=== PATIENT | female | born 1990 | race Caucasian/White ===

== ENCOUNTER → 2023-08-20 17:28 | Outpatient (REF) | payer BC, SELFPAY | LOC: PNTC 17:28 | PROVIDERS: ATTENDING PHYSICIAN Obstetrics & Gynecology | DX: O09.529 Supervision of elderly multigravida, unspecified trimester (principal) | CPT/HCPCS: 76816 ==

== ENCOUNTER 2023-10-10 13:13 | Observation (INO) | payer BC, SELFPAY ==
[2023-10-10 13:29] VITALS: BP 125/79; BMI 30.2
[2023-10-10 14:22] LABS: Hemoglobin 9.9 g/dL (12.0-16.0); Mean Corp Hgb Conc. 36.7 g/dL (33.0-37.0); Mean Corpuscular Hgb 32.6 pg (27.0-31.0); Mean Corpuscular Volume 88.8 fL (81.0-99.0); Mean Platelet Volume 10.1 fL (7.4-10.4); Platelet Count 306 10^3/uL (130-400); Red Blood Cell Count 3.04 10^6/uL (4.20-5.40)
[2023-10-10 14:33] LABS: ALT (SGPT) 15 U/L (0-35); AST (SGOT) 27 U/L (14-36); Albumin 3.7 g/dl (3.5-5.0); Alkaline Phosphatase 120 U/L (38-126); Blood Urea Nitrogen 10 mg/dl (7-17); Calcium 9.6 mg/dl (8.4-10.2); Carbon Dioxide 21 mmol/L (22-30); Chloride 105 mmol/L (98-107); Estimated Creatinine Clearance > 125 ml/min; Glucose 78 mg/dl (70-99); Potassium 4.3 mmol/L (3.5-5.1); Sodium 133 mmol/L (135-145); Total Bilirubin 0.4 mg/dl (0.2-1.3); Total Protein 6.4 g/dl (6.3-8.2); eGFR > 60.00
[2023-10-10 15:16] LABS: Urine Albumin Negative (Neg - Trace); Urine Bilirubin Negative (Negative); Urine Character Clear (Clear); Urine Color Yellow; Urine Glucose Negative (Negative); Urine Ketone Negative (Negative); Urine Leukocyte Negative (Negative); Urine Nitrite Negative (Negative); Urine Occult Blood Negative (Negative); Urine Specific Gravity 1.005 (<1.030); Urine Urobilinogen Negative (Neg - 1+)
[2023-10-10 15:33] LABS: Protein/creatinine Ratio 0.4; Urine Protein 13 mg/dl
== END 2023-10-10 16:59 | disposition home or self-care (01) ==
LOC: LDRP 13:13
PROVIDERS: Obstetrics & Gynecology; ADMITTING PHYSICIAN Obstetrics & Gynecology
DX: M54.50 Low back pain, unspecified (principal); R10.9 Unspecified abdominal pain; R51.9 Headache, unspecified; R20.2 Paresthesia of skin; O48.0 Post-term pregnancy; Z3A.40 40 weeks gestation of pregnancy; O99.343 Other mental disorders complicating pregnancy, third trimester; F41.9 Anxiety disorder, unspecified; O09.523 Supervision of elderly multigravida, third trimester; O99.013 Anemia complicating pregnancy, third trimester; D64.9 Anemia, unspecified; Z88.1 Allergy status to other antibiotic agents; Z88.2 Allergy status to sulfonamides
CPT/HCPCS: 59025; 80053; 81003; 82570; 84156; 84550; 85027; 86850; 86900; 86901; G0378

== ENCOUNTER → 2023-10-13 10:42 | Outpatient (REF) | payer BC, SELFPAY | LOC: PNTC 10:42 | PROVIDERS: ATTENDING PHYSICIAN Obstetrics & Gynecology | DX: O48.0 Post-term pregnancy (principal) | CPT/HCPCS: 59025; 76815 ==

== ENCOUNTER 2023-10-15 02:25 | Inpatient (IN) | payer BC, SELFPAY ==
[2023-10-15 02:47] VITALS: BP 124/69; BMI 30.6
[2023-10-15 03:57] LABS: % Basophils 0.3 % (0-2); % Eosinophils 0.7 % (0-6); % Immature Granulocytes 1.1 % (0-0.5); % Lymphocytes 15.1 % (20.5-51.1); % Monocytes 7.4 % (1.7-9.3); % Neutrophils 75.4 % (42.2-75.2); Absolute Eosinophils 0.1 10^3/uL (0-0.7); Absolute Immature Granulocytes 0.2 10^3/uL (0-0.05); Absolute Lymphocytes 2.3 10^3/uL (1.2-3.4); Absolute Monocytes 1.1 10^3/uL (0.1-0.6); Absolute Neutrophils 11.4 10^3/uL (1.4-6.5); Hematocrit 26.7 % (37.0-47.0); Hemoglobin 9.8 g/dL (12.0-16.0); Mean Corp Hgb Conc. 36.7 g/dL (33.0-37.0); Mean Corpuscular Hgb 32.7 pg (27.0-31.0); Nucleated Red Blood Cells % 0 %; Platelet Count 321 10^3/uL (130-400); Red Cell Dist. Width 12.8 % (11.5-14.5); White Blood Cell Count 15.1 10^3/uL (4.8-10.8)
[2023-10-15] MEDS: LR 1000 IV ×2 (04:35→10:56)
[2023-10-15] MEDS: PITOCIN 30 UNITS/NSS 500 ML IV ×2 (09:58→13:26)
[2023-10-15] MEDS: FENTANYL/BUPIVACAINE 100 EPIDURAL (11:15)
[2023-10-15] MEDS: SUBLIMAZE 100 MCG EPIDURAL (11:15)
[2023-10-15] MEDS: METHERGINE INJECTION 0.2 MG IM (15:04)
[2023-10-15] MEDS: TRANEXAMIC ACID 100 IV (15:10)
[2023-10-15] MEDS: MOTRIN 600 MG PO ×2 (15:39→23:47)
[2023-10-15] MEDS: TYLENOL 650 MG PO ×2 (15:40→23:47)
[2023-10-16 05:48] LABS: Hematocrit 23.3 % (37.0-47.0); Hemoglobin 8.4 g/dL (12.0-16.0)
[2023-10-16] MEDS: TYLENOL 650 MG PO ×2 (07:38→15:56)
[2023-10-16] MEDS: MOTRIN 600 MG PO ×2 (07:39→15:55)
[2023-10-16] MEDS: PRENATAL PLUS 1 TABLET PO (07:39)
[2023-10-16] MEDS: SENOKOT-S 1 TABLET PO (07:39)
[2023-10-16] MEDS: FEOSOL 325 MG PO (15:55)
[2023-10-16 15:57] LABS: Syphilis/T. pallidum Ab Reflex Negative (Negative)
[2023-10-17] MEDS: PRENATAL PLUS 1 TABLET PO (08:06)
[2023-10-17] MEDS: FEOSOL 325 MG PO (08:06)
[2023-10-17] MEDS: TYLENOL 650 MG PO (08:09)
[2023-10-17] MEDS: MOTRIN 600 MG PO (08:10)
== END 2023-10-17 12:42 | disposition home or self-care (01) | DRG 807 ==
LOC: LDRP 02:25
PROVIDERS: Obstetrics & Gynecology; ADMITTING PHYSICIAN Obstetrics & Gynecology
PROC: 10E0XZZ Delivery of Products of Conception, External Approach (ICD-10-PCS; 2023-10-15)
PROC: 0UQMXZZ Repair Vulva, External Approach (ICD-10-PCS; 2023-10-15)
PROC: 0HQ9XZZ Repair Perineum Skin, External Approach (ICD-10-PCS; 2023-10-15)
DX: O48.0 Post-term pregnancy (principal); Z37.0 Single live birth; O42.02 Full-term premature rupture of membranes, onset of labor within 24 hours of rupture; Z3A.41 41 weeks gestation of pregnancy; O70.0 First degree perineal laceration during delivery; Z88.1 Allergy status to other antibiotic agents; Z88.2 Allergy status to sulfonamides; O99.344 Other mental disorders complicating childbirth; F41.9 Anxiety disorder, unspecified; O90.81 Anemia of the puerperium; D64.9 Anemia, unspecified
CPT/HCPCS: 85014; 85018; 85025; 86780; 86850; 86900; 86901

== ENCOUNTER 2023-10-20 17:39 | Observation (INO) | payer BC, SELFPAY ==
[2023-10-20 17:55] VITALS: BMI 30.1
[2023-10-20 18:23] VITALS: BP 129/83
[2023-10-20 18:29] LABS: % Basophils 0.4 % (0-2); % Immature Granulocytes 0.9 % (0-0.5); % Lymphocytes 17.3 % (20.5-51.1); % Monocytes 6.4 % (1.7-9.3); Absolute Basophils 0.1 10^3/uL (0-0.2); Absolute Eosinophils 0.1 10^3/uL (0-0.7); Absolute Immature Granulocytes 0.1 10^3/uL (0-0.05); Absolute Lymphocytes 2.2 10^3/uL (1.2-3.4); Absolute Monocytes 0.8 10^3/uL (0.1-0.6); Absolute Neutrophils 9.6 10^3/uL (1.4-6.5); Hematocrit 24.7 % (37.0-47.0); Hemoglobin 8.9 g/dL (12.0-16.0); Mean Corpuscular Hgb 32.5 pg (27.0-31.0); Mean Corpuscular Volume 90.1 fL (81.0-99.0); Mean Platelet Volume 9.2 fL (7.4-10.4); Nucleated Red Blood Cells % 0 %; Platelet Count 388 10^3/uL (130-400); Red Blood Cell Count 2.74 10^6/uL (4.20-5.40); Red Cell Dist. Width 12.7 % (11.5-14.5); White Blood Cell Count 12.9 10^3/uL (4.8-10.8)
[2023-10-20 18:44] LABS: ALT (SGPT) 31 U/L (0-35); AST (SGOT) 35 U/L (14-36); Albumin 3.7 g/dl (3.5-5.0); Alkaline Phosphatase 90 U/L (38-126); Blood Urea Nitrogen 20 mg/dl (7-17); Calcium 9.4 mg/dl (8.4-10.2); Carbon Dioxide 25 mmol/L (22-30); Chloride 108 mmol/L (98-107); Estimated Creatinine Clearance 100 ml/min; Glucose 91 mg/dl (70-99); Potassium 4.2 mmol/L (3.5-5.1); Sodium 138 mmol/L (135-145); Total Bilirubin 0.3 mg/dl (0.2-1.3); Total Protein 6.2 g/dl (6.3-8.2); eGFR > 60.00
[2023-10-20] MEDS: MOTRIN 600 MG PO (19:09)
[2023-10-20] MEDS: TYLENOL 1000 MG PO (19:09)
== END 2023-10-20 20:45 | disposition home or self-care (01) ==
LOC: LDRP 17:39
PROVIDERS: ADMITTING PHYSICIAN Obstetrics & Gynecology
DX: R51.9 Headache, unspecified (principal); M54.9 Dorsalgia, unspecified
CPT/HCPCS: 80053; 85025; G0378

== ENCOUNTER → 2023-11-12 07:30 | Outpatient (REF) | payer BC, SELFPAY | LOC: MRI 07:30 | PROVIDERS: ATTENDING PHYSICIAN Obstetrics & Gynecology; FAMILY PHYSICIAN Nurse Practitioner | DX: G44.001 Cluster headache syndrome, unspecified, intractable (principal) | CPT/HCPCS: 70553; A9575 ==

== ENCOUNTER → 2024-03-11 15:14 | Outpatient (REF) | payer BC, SELFPAY | LOC: PAVMRI 15:14 | PROVIDERS: ATTENDING PHYSICIAN Psychiatry & Neurology Neurology | DX: R51.9 Headache, unspecified (principal) | CPT/HCPCS: 70544 ==